=== PATIENT | male | born 1965 | race Caucasian/White ===

== ENCOUNTER 2016-09-02 07:42 | Emergency (ER) | payer OTHER ==
[2016-09-02 07:48] VITALS: BP 175/124; PULSE 78; RESP 18; TEMP 98.9; O2SAT 98
[2016-09-02 07:56] VITALS: BP 167/121
[2016-09-02] MEDS ORDERED: OFFICE MEDICATION ×2 (08:02→08:04)
[2016-09-02] MEDS ORDERED: ENAL20TA PO (08:02)
[2016-09-02] MEDS ORDERED: ONDANSETRON HCL 4 MG/2 ML VIAL ONE (08:14)
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
[2016-09-02] MEDS ORDERED: SODIUM CHLORIDE 0.9% FLUSH 10 ML FLUSH IV FLUSH PRN (08:30)
[2016-09-02] MEDS ORDERED: ONDANSETRON HCL 4 MG/2 ML VIAL IVP ONE (08:30)
[2016-09-02] MEDS ORDERED: SODIUM CHLOR 0.9% 1000 ML INJ 1,000 ML IV ONE (08:30)
[2016-09-02] MEDS ORDERED: MORPHINE SULFATE 4 MG/ML INJ IV PUSH ONE ×2 (08:30→10:45)
[2016-09-02] MEDS ORDERED: IOHEXOL 350 MG/ML 10 ML VIAL (for RAD DIAG) IV ONE (09:12)
[2016-09-02 09:36] LABS: APTT (PATIENT) 27.3 SEC (24.3-30.1); AUTOMATED NEUTROPHIL # 5.2 TH/MM3 (1.8-7.7); BASOPHIL % 0.5 % (0.0-2.0); EOSINOPHIL % 0.5 % (0.0-4.0); HEMATOCRIT 49.2 % (39.0-51.0); HEMO FLAGS DIFF FINAL; INTERNATIONAL NORMALIZED RATIO 1.1 RATIO; LYMPH % 17.6 % (9.0-44.0); LYMPHOCYTE # 1.4 TH/MM3 (1.0-4.8); MEAN CELL VOLUME 88.3 FL (80.0-100.0); MEAN CORPUSCULAR HEMOGLOBIN 30.6 PG (27.0-34.0); MEAN CORPUSCULAR HGB CONC 34.6 % (32.0-36.0); MONO % 14.4 % (0.0-8.0); PLATELET COUNT 169 TH/MM3 (150-450); PROTHROMBIN TIME - PATIENT 11.9 SEC (9.8-11.6); RED BLOOD COUNT 5.57 MIL/MM3 (4.50-5.90); RED CELL DISTRIBUTION WIDTH 13.6 % (11.6-17.2); WHITE BLOOD COUNT 7.8 TH/MM3 (4.0-11.0)
--- NOTE | 2016-09-02 09:40 | RADRPT ---
EXAM DATE/TIME: 09/02/2016 08:56 [facility] COMPARISON: No previous studies available for comparison. INDICATIONS : Abdomen pain right upper quadrant for a week. IV CONTRAST: 80 cc Omnipaque 350 (iohexol) IV ORAL CONTRAST: No oral contrast ingested. RADIATION DOSE: 5.45 CTDIvol (mGy) MEDICAL HISTORY : Cardiovascular disease. Emphysema. Cholelithiasis. COPD, SURGICAL HISTORY : Coronary artery stent. ENCOUNTER: Initial ACUITY: 1 week PAIN SCALE: 5/10 LOCATION: TECHNIQUE: Volumetric scanning of the abdomen and pelvis was performed. Using automated exposure control and ad justment of the mA and/or kV according to patient size, radiation dose was kept as low as reasonably achievable to obtain optimal diagnostic quality images. FINDINGS: Mild emphysematous changes are seen in both lung bases. The liver, spleen, pancreas and adrenals unr emarkable. There is a gallstone present in the gallbladder with very minimal induration around the dome of the g allbladder. There is symmetrical renal function. There is no ascites or adenopathy appreciated. Pelvic contents are unremarkable. CONCLUSION: Gallstone present in the gallbladder with very minimal induration around the dome of the gallbladder. Correlation is suggested to exclude cholecystitis. Jorge Hoover MD FACR on September 02, 2016 at 9:13 Board Certified Radiologist. This report was verified electronically.
[2016-09-02 09:47] LABS: ANION GAP 12 MEQ/L (5-15); AST (GOT) 41 U/L (15-37); BICARBONATE 19.5 MEQ/L (21.0-32.0); BLOOD UREA NITROGEN 12 MG/DL (7-18); CHLORIDE 106 MEQ/L (98-107); GLOMERULAR FILTRATION RATE 85 ML/MIN (>89); SODIUM (NA) 137 MEQ/L (136-145)
[2016-09-02 09:50] LABS: ALKALINE PHOSPHATASE 83 U/L (45-117); ALT (GPT) 63 U/L (12-78); TOTAL BILIRUBIN ADULT 1.7 MG/DL (0.2-1.0)
[2016-09-02] MEDS ORDERED: ZOFR4TAB PO (10:43)
[2016-09-02] MEDS ORDERED: AUGM875T3 PO (10:43)
[2016-09-02] MEDS ORDERED: PERC5TAB12 PO (10:43)
[2016-09-02] MEDS ORDERED: PROCHLORPERAZINE INJ 10 MG/2 ML VIAL IV PUSH ONE (10:45)
[2016-09-02] MEDS ORDERED: ONDANSETRON HCL 4 MG/2 ML VIAL IV ONE (10:45)
[2016-09-02 10:59] VITALS: RESP 16
[2016-09-02 11:48] VITALS: BP 132/65
== END 2016-09-02 11:47 | disposition home or self-care (01) ==
LOC: NEPE 07:42
DX: K80.50 Calculus of bile duct without cholangitis or cholecystitis without obstruction (principal); I10 Essential (primary) hypertension; F17.200 Nicotine dependence, unspecified, uncomplicated
CPT/HCPCS: 74177; 80053; 83690; 85025; 85610; 85730; 96361; 96374; 96375; 96376; 99285; J0780; J2270; J2405; J7030; Q9967

== ENCOUNTER 2017-07-08 02:41 | Observation (INO) | payer OTHER ==
[2017-07-08] VITALS (7 sets, daily range): BP systolic 143–172; BP diastolic 81–110; PULSE 52–73; RESP 20–24; TEMP 97.4–97.8; O2SAT 92–99
[~2017-07-08] VITALS: Ht 175.3 cm; Wt 73.2 kg
[~2017-07-08 02:41] MED LIST: AUGM875T3 PO; ENAL20TA PO; OFFICE MEDICATION; PERC5TAB12 PO; ZOFR4TAB PO
[2017-07-08] MEDS ORDERED: IPRAAER INH (03:02)
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
[2017-07-08] MEDS ORDERED: HYDROmorphone HCL PF 1 MG/ML VIAL IVS ONE (03:30)
[2017-07-08] MEDS ORDERED: ONDANSETRON HCL 4 MG/2 ML VIAL IVP ONE (03:30)
[2017-07-08] MEDS ORDERED: HYDROmorphone HCL PF 2 MG/ML VIAL IV PUSH ONE (03:30)
--- NOTE | 2017-07-08 04:06 | RADRPT ---
EXAM DATE/TIME: 07/08/2017 03:04 [facility] COMPARISON: No previous studies available for comparison. INDICATIONS : Congestion. MEDICAL HISTORY : Hypertension. Emphysema. SURGICAL HISTORY : CABG. ENCOUNTER: Initial ACUITY: 1 day PAIN SCORE: 6/10 LOCATION: Right lower chest FINDINGS: PA and lateral views of the chest demonstrate the lungs to be hyper aerated without evidence of mass, infiltrate or effusion. Status post CABG. The cardiomediastinal contours are unremarkable. Osseous structures are intact. CONCLUSION: No acute disease. Status post CABG. Rodriguez Zabala MD on July 08, 2017 at 4:04 Board Certified Radiologist. This report was verified electronically.
--- NOTE | 2017-07-08 04:12 | RADRPT ---
EXAM DATE/TIME: 07/08/2017 03:04 [facility] COMPARISON: No previous studies available for comparison. INDICATIONS : Right lower chest pain post fall. MEDICAL HISTORY : Hypertension. Emphysema. SURGICAL HISTORY : CABG. ENCOUNTER: Initial ACUITY: 2 days PAIN SCORE: 6/10 LOCATION: Right lower chest FINDINGS: Multiple views of the right ribs were performed. There is displaced right 10th rib fracture. No wallace tructive lesions or areas of periosteal thickening are seen. Expiratory view of the chest is negativ e for pneumothorax. The mediastinal structures are midline. CONCLUSION: Right 10th rib fracture. Emphysema. Rodriguez Zabala MD on July 08, 2017 at 4:09 Board Certified Radiologist. This report was verified electronically.
[2017-07-08] MEDS ORDERED: SENNOSIDES 8.6 MG TAB PO PRN (04:45)
[2017-07-08] MEDS ORDERED: SODIUM CHLORIDE 0.9% FLUSH 10 ML FLUSH IV FLUSH PRN (04:45)
[2017-07-08] MEDS ORDERED: MAGNESIUM HYDROXIDE SUSP 30 ML CUP PO PRN (04:45)
[2017-07-08] MEDS ORDERED: ONDANSETRON HCL 4 MG/2 ML VIAL IVP PRN (04:45)
[2017-07-08] MEDS ORDERED: LACTULOSE SYRUP 20 GM/30 ML CUP PO PRN (04:45)
[2017-07-08] MEDS ORDERED: ACETAMINOPHEN 325 MG TAB PO PRN (04:45)
[2017-07-08] MEDS ORDERED: NALOXONE HCL 0.4 MG/ML AMP IV PUSH PRN (04:45)
[2017-07-08] MEDS ORDERED: BISACODYL 10 MG SUPP RECTAL PRN (04:45)
[2017-07-08 04:56] LABS: AUTOMATED NEUTROPHIL # 3.4 TH/MM3 (1.8-7.7); BASOPHIL # 0.1 TH/MM3 (0-0.2); EOSINOPHIL # 0.1 TH/MM3 (0-0.4); EOSINOPHIL % 2.3 % (0.0-4.0); HEMATOCRIT 48.4 % (39.0-51.0); HEMOGLOBIN 16.7 GM/DL (13.0-17.0); LYMPH % 31.9 % (9.0-44.0); MEAN CELL VOLUME 89.9 FL (80.0-100.0); MEAN CORPUSCULAR HEMOGLOBIN 30.9 PG (27.0-34.0); MEAN CORPUSCULAR HGB CONC 34.4 % (32.0-36.0); MEAN PLATELET VOLUME 9.1 FL (7.0-11.0); MONO % 11.1 % (0.0-8.0); MONOCYTE # 0.7 TH/MM3 (0-0.9); NEUT % 52.7 % (16.0-70.0); PLATELET COUNT 155 TH/MM3 (150-450); RED BLOOD COUNT 5.39 MIL/MM3 (4.50-5.90); RED CELL DISTRIBUTION WIDTH 13.6 % (11.6-17.2); WHITE BLOOD COUNT 6.3 TH/MM3 (4.0-11.0)
[2017-07-08] MEDS ORDERED: HYDROmorphone HCL PF 2 MG/ML VIAL IV PRN (05:00)
[2017-07-08 05:07] LABS: CHLORIDE 110 MEQ/L (98-107); SODIUM (NA) 140 MEQ/L (136-145)
[2017-07-08 05:10] LABS: CALCIUM 7.8 MG/DL (8.5-10.1)
[2017-07-08 05:11] LABS: ALBUMIN 3.5 GM/DL (3.4-5.0); BICARBONATE 23.2 MEQ/L (21.0-32.0); BLOOD UREA NITROGEN 12 MG/DL (7-18); GLUCOSE,RANDOM 83 MG/DL (74-106)
[2017-07-08 05:14] LABS: ALT (GPT) 37 U/L (12-78); AST (GOT) 22 U/L (15-37); GLOMERULAR FILTRATION RATE 70 ML/MIN (>89)
[2017-07-08 05:15] LABS: TOTAL BILIRUBIN ADULT 0.5 MG/DL (0.2-1.0)
[2017-07-08 05:16] LABS: TOTAL PROTEIN 7.2 GM/DL (6.4-8.2)
[2017-07-08 05:17] LABS: ALKALINE PHOSPHATASE 75 U/L (45-117)
[2017-07-08] MEDS ORDERED: NICOTINE 21 MG/24 HR PATCH T-DERMAL SCH (09:00)
[2017-07-08] MEDS ORDERED: SODIUM CHLORIDE 0.9% FLUSH 10 ML FLUSH IV FLUSH SCH (09:00)
[2017-07-08] MEDS ORDERED: HEPARIN SODIUM - SQ 10,000 UNITS/ML VIAL SQ SCH (09:00)
[2017-07-08] MEDS ORDERED: DOCUSATE SODIUM 50 MG/SENNA 8.6 MG TAB PO SCH (09:00)
[2017-07-08] MEDS ORDERED: LIDOCAINE HCL 5% PATCH T-DERMAL ONE (10:30)
[2017-07-08] MEDS ORDERED: NAPROXEN 500 MG TAB PO ONE (11:00)
[2017-07-08] MEDS ORDERED: NICOTINE 14 MG/24 HR PATCH T-DERMAL ONE (11:00)
[2017-07-08] MEDS ORDERED: HYDR-3288 PO (11:16)
[2017-07-08] MEDS ORDERED: LIDO1ADH4 TOPICAL (11:16)
[2017-07-08] MEDS ORDERED: NICO21DI2 T-DERMAL (11:16)
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
--- NOTE | 2017-07-08 11:16 | HHI.DCPOC ---
Discharge Care Plan Diagnosis: (1) Right rib fracture (2) Right pulmonary contusion (3) Hypoxemia (4) COPD (chronic obstructive pulmonary disease) Goals to Promote Your Health * To prevent worsening of your condition and complications * To maintain your health at the optimal level Directions to Meet Your Goals Take your medications as prescribed Follow your dietary instruction Follow activity as directed Keep your appointments as scheduled Take your immunizations and boosters as scheduled If your symptoms worsen call your PCP, if no PCP go to Urgent Care Center or Emergency Room Smoking is Dangerous to Your Health. Avoid second hand smoke Call the 24-hour hour crisis hotline for domestic abuse at Cash Bess MD Jul 08, 2017 11:16
[2017-07-08] MEDS ORDERED: NON-FORMULARY DRUG (Ipratropium-Albuterol Inh (Combivent Respimat Inh) 1 PUFF) INH SCH (13:00)
[2017-07-08] MEDS ORDERED: ALBUTEROL SULFATE 90 MCG/ACT HFA 8 GM INHALER INH SCH (13:00)
[2017-07-08] MEDS ORDERED: REMOVE OLD LIDOCAINE PATCH T-DERMAL SCH (21:00)
[2017-07-09] MEDS ORDERED: REMOVE OLD PATCH T-DERMAL SCH (09:00)
[2017-07-09] MEDS ORDERED: LIDOCAINE HCL 5% PATCH T-DERMAL SCH (09:00)
[2017-07-09] MEDS ORDERED: TIOTROPIUM BROMIDE 18 MCG INH INH SCH (09:00)
== END 2017-07-08 13:00 | disposition home or self-care (01) ==
LOC: PHED 02:41 → PHEDA 04:43 → PH3B 05:07
PROVIDERS: ADMIT Hospitalist; ATTEND Hospitalist
DX: R09.02 Hypoxemia (principal); S27.321A Contusion of lung, unilateral, initial encounter; S22.31XA Fracture of one rib, right side, initial encounter for closed fracture; J44.9 Chronic obstructive pulmonary disease, unspecified; I10 Essential (primary) hypertension; F17.200 Nicotine dependence, unspecified, uncomplicated; Z79.899 Other long term (current) drug therapy; Z95.1 Presence of aortocoronary bypass graft; W11.XXXA Fall on and from ladder, initial encounter; Y99.0 Civilian activity done for income or pay
CPT/HCPCS: 36600; 71046; 71101; 80053; 82805; 85025; 94150; 96374; 96375; 96376; 97161; 99285; G0378; G8987; G8988; J1170; J1644; J2405